=== PATIENT | male | born 1940 | race Caucasian/White ===

== ENCOUNTER 2023-12-18 06:17 | Day surgery (SDC) | payer MEDICARE ==
[~2023-12-18] VITALS: Ht 152.4 cm; Wt 68.0 kg
[2023-12-18] MEDS ORDERED: MIDAZOLAM 5 MG/5 ML VIAL ONE (07:53)
[2023-12-18] MEDS ORDERED: fentaNYL citrate 0.05 MG/ML VIAL ONE (07:53)
[2023-12-18] MEDS: MIDAZOLAM 2 MG/2 ML VIAL IVP ONE (08:15)
== END 2023-12-18 09:29 | disposition home or self-care (01) ==
LOC: MDS 06:17 → MMU 06:37 → MDS 09:29
PROVIDERS: ATTEND Internal Medicine Gastroenterology
DX: K74.60 Unspecified cirrhosis of liver (principal); I85.00 Esophageal varices without bleeding; R19.5 Other fecal abnormalities; I10 Essential (primary) hypertension; Z85.46 Personal history of malignant neoplasm of prostate; Z90.89 Acquired absence of other organs; Z79.899 Other long term (current) drug therapy; Z98.890 Other specified postprocedural states
CPT/HCPCS: 43235; J2250; J3010